=== PATIENT | male | born 1955 | race Caucasian/White ===

== ENCOUNTER → 2017-08-12 | Outpatient (CLI) | payer BC ==
[2017-08-12 06:33] LABS: ABSOLUTE EOSINOPHILS # (AUTO) 0.2 10^3/uL (0.0-0.6); ABSOLUTE LYMPHOCYTES (AUTO) 1.9 10^3/uL (0.5-4.7); ABSOLUTE MONOCYTES (AUTO) 1.1 10^3/uL (0.1-1.4); ABSOLUTE NEUT (AUTO) 6.1 10^3/uL (1.7-8.2); BASOPHILS % (AUTO) 0.5 % (0-2); HEMATOCRIT 42.4 % (37.9-51.0); HEMOGLOBIN 14.7 g/dL (13.5-17.0); LYMPHOCYTES % (AUTO) 20.2 % (13-45); MEAN CORPUSCULAR HEMOGLOBIN 28.5 pg (27.0-33.4); MEAN CORPUSCULAR HGB CONC 34.6 g/dL (32.0-36.0); MEAN CORPUSCULAR VOLUME 83 fl (80-97); MONOCYTES % (AUTO) 11.8 % (3-13); PLATELET COUNT 220 10^3/uL (150-450); RED BLOOD COUNT 5.14 10^6/uL (4.35-5.55); RED CELL DISTRIBUTION WIDTH 14.9 % (11.5-14.0); SEGMENTED NEUTROPHILS % (AUTO) 65.5 % (42-78); TOTAL CELLS COUNTED % (AUTO) 100 %; WHITE BLOOD COUNT 9.3 10^3/uL (4.0-10.5)
[2017-08-12 06:56] LABS: ALANINE AMINOTRANSFERASE 43 U/L (21-72); ALBUMIN 3.8 g/dL (3.5-5.0); ALKALINE PHOSPHATASE 138 U/L (38-126); ANION GAP 11 (5-19); ASPARTATE AMINO TRANSFERASE 31 U/L (17-59); BILIRUBIN,DIRECT 0.1 mg/dL (0.0-0.4); BILIRUBIN,TOTAL 0.5 mg/dL (0.2-1.3); BLOOD UREA NITROGEN 16 mg/dL (7-20); CALCIUM 8.7 mg/dL (8.4-10.2); CARBON DIOXIDE 24 mmol/L (22-30); CHLORIDE 106 mmol/L (98-107); CHOLESTEROL 89.28 mg/dL (0-200); GLUCOSE 93 mg/dL (75-110); POTASSIUM 3.6 mmol/L (3.6-5.0); SODIUM 141.2 mmol/L (137-145); TOTAL PROTEIN 6.7 g/dL (6.3-8.2); TRIGLYCERIDES 108 mg/dL (<150)
[2017-08-12 07:29] LABS: DIRECT LDL < 30 mg/dL (<100)
== END ==
LOC: LAB 06:23
PROVIDERS: ATTEND Internal Medicine
DX: Z00.00 Encounter for general adult medical examination without abnormal findings (principal)
CPT/HCPCS: 36415; 80053; 80061; 84153; 85025

== ENCOUNTER 2018-04-18 05:31 | Day surgery (SDC) | payer BC ==
[2018-04-05 09:17] LABS: HEMATOCRIT 42.4 % (37.9-51.0); HEMOGLOBIN 14.6 g/dL (13.5-17.0); MEAN CORPUSCULAR HEMOGLOBIN 29.2 pg (27.0-33.4); MEAN CORPUSCULAR HGB CONC 34.4 g/dL (32.0-36.0); MEAN CORPUSCULAR VOLUME 85 fl (80-97); PLATELET COUNT 269 10^3/uL (150-450); RED BLOOD COUNT 4.99 10^6/uL (4.35-5.55); WHITE BLOOD COUNT 8.2 10^3/uL (4.0-10.5)
[2018-04-05 09:27] LABS: INTERNATIONAL RATION (INR) 0.94; PROTHROMBIN TIME 13.1 SEC (11.4-15.4)
[2018-04-05 09:28] LABS: PARTIAL THROMBOPLASTIN TIME 30.9 SEC (23.5-35.8)
--- NOTE | 2018-04-05 19:35 | EKG REPORT ---
SEVERITY:- NORMAL ECG - SINUS RHYTHM : Confirmed by: Leticia Ga MD 05-Apr-2018 19:34:38
[~2018-04-18 05:31] MED LIST: CEFAZOLIN 1 GM/D5W RTU 1 GM/50 ML RTUPB IV ONE; CEFAZOLIN 1 GM/D5W RTU 1 GM/50 ML RTUPB IV PRN; LACTATED RINGERS 1000 ML IV PRN; LIDOCAINE 0.5% INJ-PF (5 MG/ML) 50 ML SDV SUBCUT PRN
[2018-04-18] MEDS ORDERED: LIDOCAINE 1%/EPINEPHRINE INJ 20 ML VIAL ONE (06:37)
[2018-04-18] MEDS ORDERED: POVIDONE-IODINE 5% OPH PREP SOLN 30 ML ONE ×2 (06:37→06:38)
[2018-04-18] MEDS ORDERED: SODIUM BICARBONATE 8.4% INJ 50 MEQ/50 ML DISP.SYRIN ONE (06:37)
[2018-04-18] MEDS ORDERED: MIDAZOLAM 2 MG/2 ML INJ ONE (06:59)
[2018-04-18] MEDS ORDERED: FENTANYL CITRATE INJ/PF 100 MCG/2 ML AMPUL ONE (06:59)
[2018-04-18] MEDS ORDERED: ONDANSETRON HCL INJ/PF 4 MG/2 ML SDV ONE (06:59)
[2018-04-18] MEDS ORDERED: PROPOFOL INJ 200 MG/20 ML VIAL IV ONE (06:59)
[2018-04-18] MEDS ORDERED: MEPERIDINE HCL/PF INJ 25 MG/1 ML DISP.SYRIN IV PRN (08:02)
[2018-04-18] MEDS ORDERED: PROMETHAZINE HCL INJ 25 MG/1 ML VIAL IV PRN ×2 (08:02)
[2018-04-18] MEDS ORDERED: MORPHINE SULFATE 10 MG/ML INJ IV PRN (08:02)
[2018-04-18] MEDS ORDERED: DIPHENHYDRAMINE HCL 50 MG/ML VIAL IV PRN (08:02)
[2018-04-18] MEDS ORDERED: FENTANYL CITRATE INJ/PF 100 MCG/2 ML AMPUL IV PRN ×3 (08:02)
--- NOTE | 2018-04-18 09:26 | Operative Report ---
Operative Report DATE OF SURGERY: 04/18/18 PREOPERATIVE DIAGNOSIS: Basal cell carcinoma of the right hairline mosque POSTOPERATIVE DIAGNOSIS: Same OPERATION: Excision of basal cell carcinoma of the right hairline mosque with frozen section margin control and reconstruction with a O to S plasty flap reconstruction SURGEON: ALLA TEJADA ANESTHESIA: LMAC TISSUE REMOVED OR ALTERED: Basal cell carcinoma COMPLICATIONS: None ESTIMATED BLOOD LOSS: Minimal PROCEDURE: Patient seen and was marked prior to being brought into the operating room. Patient was brought into the operating room and placed on the operating room table in a supine position. Patient was then prepped with a Betadine scrub and Betadine solution and draped in a sterile and aseptic manner. The area was then marked. 12 O'clock was marked towards the eyebrow 3 O'clock was marked towards the preauricular 6:00 was marked towards the posterior scalp 9:00 was marked towards the superior scalp The area was then anesthetized with 1% lidocaine with epinephrine and bicarbonate for its anesthetic and hemostatic effects. The area was then excised and marked at 12:00. The specimen was sent for frozen section. The results came back that the deep and lateral margins were free. We had considered a primary closure but this would go against the natural relaxed skin tension lines. A primary closure would be too tight and would have increased chance of dehiscence. This will leave more of a scar so we decided to use a O to S flap reconstruction which would camouflage the scar better and take tension off of the closure so that would be less chances of complications. This was a rather large defect and it was felt that using O to S would allow us to Direct the reconstruction so that we can keep it within the sterile field posteriorly and allow us to curve the reconstruction to fall into the crows feet around the mosque area. Then we went ahead and outlined the flap and anesthetized it. We then incised the flap and developed a flap maintaining the subdermal plexus. Then we undermined 360 to allow for plate like scarring and minimize trap door deformity. Throughout the case hemostasis was achieved with the bipolar. We then sutured the flap into its new position using 4-0 Vicryl for the subcutaneous and deep dermis. Skin was closed with a running subcuticular suture stitch using 3-0 PDS with knots being tied on the outside. And 3-0 PDS suture was used for support and placed in the central area of the incision. We then applied tincture benzoin and Steri-Strips followed by a light pressure dressing. Patient was then reversed from anesthesia and taken to the [facility] for recovery. The patient tolerated well. There were no complications. Lesion size was approximately 2.9 x 2.5 cm please see pathology for actual size. Portions of this note may be dictated using [employer] voice recognition software. Occasional variations and spelling and vocabulary could be possible and are unintentional. Additionally, there is a chance that some errors may not be caught or corrected. Please notify the author of any discrepancies noted or if any statements are unclear. Subjective: No complaints Objective: Vital signs stable afebrile No bleeding Dressing intact Assessment and plan: Doing well. Elevate the operative site. Resume medications. Take antibiotics for 1 day Follow-up Full instructions were given to the patient and family and they understand Portions of this note may be dictated using [employer] voice recognition software. Occasional variations and spelling and vocabulary could be possible and are unintentional. Additionally, there is a chance that some errors may not be caught or corrected. Please notify the offer of any discrepancies noted or if any statements are unclear.
--- NOTE | 2018-04-18 09:27 | Discharge Summary ---
Discharge Summary (SDC) - Discharge Final Diagnosis: Basal cell carcinoma of the right hairline [facility] [employer] Date of Surgery: 04/18/18 Condition: Good Treatment or Instructions: Leave the top dressing on for 2 days, then removed. Leave the steri-strip tapes on for 5 days, then removal. Then cleaning wound with peroxide and apply Neosporin/bacitracin 3 times per day. Antibiotics for 1 day, then discontinue. Elevate operative area to decrease swelling. Do not strain, or lift heavy objects. Call for excessive bleeding, increased temperature of 101, uncontrolled pain, or excessive nausea or vomiting. You may reach Dr. Weinberg through his office at [phone]. In the event of an emergency after hours, then contact Dr. Weinberg through [facility]. Return to the office for a postop check on . The time will be scheduled by the nursing staff of [facility] prior to discharge. Please give the patient a copy of their labs and EKG so they can bring this to their PMD. Thank you Portions of this note may be dictated using [employer] voice recognition software. Occasional variations and spelling and vocabulary could be possible and are unintentional. Additionally, there is a chance that some errors may not be caught or corrected. Please notify the offer of any discrepancies noted or if any statements are unclear. Referrals: MARTIN KOROMA MD [Primary Care Provider] - Discharge Diet: As Tolerated Report the Following to Your Physician Immediately: Unusual Bleeding - Keep head elevated. No bending or straining.
[2018-04-18 10:35] VITALS: BP 112/79
== END 2018-04-18 10:15 | disposition home or self-care (01) ==
LOC: OROUT 05:31
PROVIDERS: ATTEND Plastic Surgery
DX: C44.319 Basal cell carcinoma of skin of other parts of face (principal); I10 Essential (primary) hypertension; L57.8 Other skin changes due to chronic exposure to nonionizing radiation; Z79.899 Other long term (current) drug therapy; Z90.49 Acquired absence of other specified parts of digestive tract; Z87.891 Personal history of nicotine dependence
CPT/HCPCS: 93005; 36415 ×2; 84132; 85027; 85610; 85730; 88305 ×2; 88331 ×2; 93010; 14040; J2250; J0690; J3010; J3490 ×3; J2405; J2704; 300

== ENCOUNTER → 2018-05-24 | Outpatient (CLI) | payer BC ==
[2018-05-24 06:53] LABS: ABSOLUTE BASOPHILS # (AUTO) 0.1 10^3/uL (0.0-0.2); ABSOLUTE EOSINOPHILS # (AUTO) 0.3 10^3/uL (0.0-0.6); ABSOLUTE LYMPHOCYTES (AUTO) 2.4 10^3/uL (0.5-4.7); ABSOLUTE MONOCYTES (AUTO) 0.8 10^3/uL (0.1-1.4); ABSOLUTE NEUT (AUTO) 6.2 10^3/uL (1.7-8.2); EOSINOPHILS % (AUTO) 2.9 % (0-6); HEMATOCRIT 44.9 % (37.9-51.0); HEMOGLOBIN 15.4 g/dL (13.5-17.0); LYMPHOCYTES % (AUTO) 24.3 % (13-45); MEAN CORPUSCULAR HGB CONC 34.3 g/dL (32.0-36.0); MEAN CORPUSCULAR VOLUME 85 fl (80-97); MONOCYTES % (AUTO) 8.6 % (3-13); PLATELET COUNT 296 10^3/uL (150-450); RED CELL DISTRIBUTION WIDTH 14.3 % (11.5-14.0); SEGMENTED NEUTROPHILS % (AUTO) 63.2 % (42-78); TOTAL CELLS COUNTED % (AUTO) 100 %; WHITE BLOOD COUNT 9.9 10^3/uL (4.0-10.5)
[2018-05-24 07:20] LABS: ALANINE AMINOTRANSFERASE 31 U/L (21-72); ALBUMIN 4.3 g/dL (3.5-5.0); ALKALINE PHOSPHATASE 128 U/L (38-126); ANION GAP 12 (5-19); ASPARTATE AMINO TRANSFERASE 30 U/L (17-59); BILIRUBIN,DIRECT 0.2 mg/dL (0.0-0.4); BILIRUBIN,TOTAL 0.8 mg/dL (0.2-1.3); BLOOD UREA NITROGEN 21 mg/dL (7-20); CALCIUM 9.6 mg/dL (8.4-10.2); CARBON DIOXIDE 29 mmol/L (22-30); CHLORIDE 102 mmol/L (98-107); CHOLESTEROL 173.21 mg/dL (0-200); GLUCOSE 105 mg/dL (75-110); POTASSIUM 4.8 mmol/L (3.6-5.0); SODIUM 142.9 mmol/L (137-145); TOTAL PROTEIN 7.7 g/dL (6.3-8.2); TRIGLYCERIDES 175 mg/dL (<150)
[2018-05-24 07:31] LABS: DIRECT LDL 54 mg/dL (<100)
[2018-05-24 07:36] LABS: FREE T4 (FREE THYROXINE) 1.07 ng/dL (0.78-2.19)
[2018-05-24 07:50] LABS: THYROID STIMULATING HORMONE 2.35 uIU/mL (0.47-4.68)
== END ==
LOC: LAB 06:41
PROVIDERS: ATTEND Internal Medicine
DX: Z00.00 Encounter for general adult medical examination without abnormal findings (principal)
CPT/HCPCS: 36415; 80053; 80061; 84439; 84443; 85025

== ENCOUNTER → 2020-01-04 | Outpatient (CLI) | payer BC | LOC: RDC 15:58 | PROVIDERS: ATTEND Nurse Practitioner Family | DX: Z03.818 Encounter for observation for suspected exposure to other biological agents ruled out (principal) | CPT/HCPCS: 87635; C9803 ==

== ENCOUNTER → 2020-07-02 | Outpatient (CLI) | payer BC ==
[~2020-07-02] MED LIST changes: -CEFAZOLIN 1 GM/D5W RTU 1 GM/50 ML RTUPB IV ONE; -CEFAZOLIN 1 GM/D5W RTU 1 GM/50 ML RTUPB IV PRN; +COVID-19 VACCINE (PFIZER)/PF 30 MCG/0.3 ML VIAL IM ONE; +EPINEPHRINE INJ/PF 1 MG/1 ML AMPULE IM PRN; -LACTATED RINGERS 1000 ML IV PRN; -LIDOCAINE 0.5% INJ-PF (5 MG/ML) 50 ML SDV SUBCUT PRN
== END ==
LOC: EMPHEALTH 14:42
PROVIDERS: ATTEND Internal Medicine
DX: Z23 Encounter for immunization (principal)
CPT/HCPCS: 91300